=== PATIENT | male | born 1975 | race Two or more races ===

== ENCOUNTER 2019-10-06 19:21 | Emergency (ER) | payer MEDICAID ==
[~2019-10-06] VITALS: Ht 177.8 cm; Wt 99.8 kg
--- NOTE | 2019-10-06 19:28 | NUR ---
ED Nurse Note: pt presents to ED c/o R ear pain that radiates to his R eye. pt also states that he has some R eyebrow drooping and his smile is uneven. pt reports onset of symptoms 30 min [employer]. pt does not have any weakness in extremities or slurring of speech
[2019-10-06 19:33] VITALS: BP 172/108
--- NOTE | 2019-10-06 19:40 | NUR ---
ED Nurse Note: pt ambulated down to CT with tech
[2019-10-06] MEDS ORDERED: PREDNISONE20 MG ORAL (19:46)
[2019-10-06] MEDS ORDERED: VALACYCLOVIR500 MG ORAL (19:46)
--- NOTE | 2019-10-06 19:46 | NUR ---
ED Nurse Note: pt has returned from CT, BP recheck is 160/97
[2019-10-06 19:47] VITALS: BP 160/97
--- NOTE | 2019-10-06 19:47 | Emergency Room Report ---
History of Present Illness General Chief Complaint: Earache Source: Patient Present Illness HPI Is a 43-year-old male with no past medical history. He presents with chief complaint of right facial droop. Onset started yesterday. He felt some numbness to the back of his neck and ear area. He felt that hearing in the right ear seem to be amplified and loud. Tonight around 7 PM, he noticed that he has some right facial drooping and twitching to his eyelids. When he looked in the mirror he noticed that his right lip is drooping. No slurred speech. No nausea no vomiting. No focal deficit other than the numbness and droopiness on the right side. Denies any other motor deficit. Denies any trauma. No fever chills. Allergies: Coded Allergies: IBUPROFEN (Verified Allergy, Unknown, 10/06/19) Patient History Past Medical History: none, see triage record, old chart reviewed Past Surgical History: none Pertinent Family History: none Social History: Denies: smoking Immunizations: other Reviewed Nursing Documentation: PMH: Agreed; PSxH: Agreed Nursing Documentation-PMH Past Medical History: No Stated History Hx Cardiac Problems: No Hx Hypertension: No Hx Pacemaker: No Hx Asthma: No Hx COPD: No Hx Diabetes: No Hx Cancer: No Hx Gastrointestinal Problems: No Hx Dialysis: No History Of Psychiatric Problem: No Hx Neurological Problems: No Hx Cerebrovascular Accident: No Hx Seizures: No Review of Systems Eye: Denies: eye pain, blurred vision ENT: Denies: ear pain, nose congestion, throat swelling Respiratory: Denies: cough, shortness of breath Cardiovascular: Denies: chest pain, palpitations Gastrointestinal: Denies: abdominal pain, diarrhea, nausea, vomiting Musculoskeletal: Denies: back pain, joint pain Skin: Denies: rash Neurological: Reports: numbness, focal weakness; Denies: headache Endocrine: Denies: increased thirst, increased urine Hematologic/Lymphatic: Denies: easy bruising All Other Systems: negative except mentioned in HPI Physical Exam Vital Signs Date Time Temp Pulse Resp B/P (MAP) Pulse Ox O2 Delivery O2 Flow Rate FiO2 10/06/19 19:24 97.9 116 19 172/108 (129) 98 Room Air Vitals with high blood pressure Sp02 EP Interpretation: reviewed, normal General Appearance: well appearing, no apparent distress, alert Head: normocephalic, atraumatic Eyes: bilateral eye PERRL, bilateral eye EOMI ENT: hearing grossly normal, normal pharynx, other - No vesicular rash in right ear Neck: full range of motion, supple, no meningismus Respiratory: chest non-tender, lungs clear, normal breath sounds Cardiovascular #1: regular rate, rhythm, no murmur Gastrointestinal: normal bowel sounds, non tender, no mass, no organomegaly, no bruit, non-distended Musculoskeletal: back normal, normal range of motion, gait/station normal Neurologic: facial droop - His facial droop is most pronounced to his right lower lip. He does have droopiness of his eyelid. He still able to wrinkle his forehead but right side is much weaker than the left. Psychiatric: mood/affect normal Medical Decision Making Diagnostic Impression: Primary Impression: Saravia's palsy ER Course Patient presents with symptoms consistent with Saravia's palsy. His weakness involving the forehead also. No evidence of TIA or CVA on clinical exam. No rash in right ear canal to indicate [facility] [place]. CT scan negative. Will discharge home. CT/MRI/US Diagnostic Results CT/MRI/US Diagnostic Results : Imaging Test Ordered: CT head Impression Negative per radiologist Last Vital Signs Date Time Temp Pulse Resp B/P (MAP) Pulse Ox O2 Delivery O2 Flow Rate FiO2 10/06/19 19:33 97.9 82 19 172/108 98 Room Air Status: unchanged Disposition: HOME, SELF-CARE Condition: Stable Scripts Valacyclovir Hcl* (VALTREX*) 500 Mg Tablet 1000 MG ORAL TID for 7 Days, TAB Prov: Brandon Edmondson MD 10/06/19 Prednisone* (PREDNISONE*) 20 Mg Tablet 60 MG ORAL DAILY, #18 TAB Prov: Brandon Edmondson MD 10/06/19 Additional Instructions: Follow-up with your doctor in 7 days. Return if symptoms worsen. Brandon Edmondson MD Oct 06, 2019 19:47
--- NOTE | 2019-10-06 19:53 | Diagnostic Imaging Report ---
Indication: Altered mental status Technique: Contiguous 5 mm thick transaxial imaging of the head obtained in a Siemens Sensation [address] scanner. Soft tissue and bone windows generated. Automatic Exposure Control was utilized. Total Dose length Product (DLP): [address] Dose Index Volume (CTDIvol): 60 mGy Comparison: none Findings: The size and configuration of the cortical sulci, basal cisterns, and ventricles are within normal limits for age. There is no mass effect, midline shift, or edema identified. There is no evidence of acute hemorrhage or abnormal intra-axial or extra-axial fluid collections. The bones and soft tissues are unremarkable. Impression: No mass effect, edema or acute bleed. [facility] has communicated the preliminary results to the Emergency Department. Their findings are largely concordant with this report. The CT scanner at [facility] is accredited by the [employer] and the scans are performed using dose optimization techniques as appropriate to a performed exam including Automatic Exposure control.
[2019-10-06 20:14] VITALS: BP 160/97
--- NOTE | 2019-10-06 20:14 | NUR ---
ER DISCHARGE NOTE: Patient is cleared to be discharged per ERMD, pt is aox4, on room air, with stable vital signs. pt was given dc and prescription instructions, pt was able to verbalize understanding, pt id band removed without complications. pt is able to ambulate with steady gait. pt took all belongings.
== END 2019-10-06 20:14 | disposition home or self-care (01) ==
LOC: EMR 19:55
DX: G51.0 Bell's palsy (principal); Z88.6 Allergy status to analgesic agent
CPT/HCPCS: 70450; J7512; Z7502; 99284